=== PATIENT | male | born 1945 | race Caucasian/White ===

== ENCOUNTER 2016-06-04 20:11 | Emergency (ER) | payer MEDICARE, OTHER ==
[~2016-06-04] VITALS: Ht 175.3 cm; Wt 113.6 kg
[2016-06-04 20:15] VITALS: TEMP 99.6
[2016-06-04] MEDS ORDERED: ZOCOR 40MG40 MG PO (20:42)
[2016-06-04] MEDS ORDERED: PRINIVIL20 MG PO (20:42)
[2016-06-04] MEDS ORDERED: NORVASC 5MG5 MG/TAB PO (20:43)
[2016-06-04] MEDS ORDERED: REQUIP XL2 MG PO (20:43)
[2016-06-04] MEDS ORDERED: REQUIP 0.5MG0.5 MG PO (20:44)
[2016-06-04 21:54] LABS: BASO # 0.1 (0.0-0.2); BASO % 0.6 % (0.0-2.0); EOS # 0.3 (0.0-0.7); EOS % 2.9 % (0-4.0); GRAN # 6.6 (1.4-6.5); GRAN % 67.5 % (42.2-75.2); HEMATOCRIT 39.5 % (42.0-52.0); HEMOGLOBIN 13.6 g/dl (13.5-18.0); LYMPH # 1.9 (1.2-3.4); LYMPH % 19.4 % (20.0-51.0); MEAN CELL VOLUME 87 fl (80.0-100.0); MEAN CORPUSCULAR HEMOGLOBIN 30 pg (27.0-31.0); MEAN CORPUSCULAR HGB CONC 34 g/dl (33.0-37.0); MEAN PLATELET VOLUME 8.5 fl (7.4-10.4); MONO # 0.9 (0.1-0.6); MONO % 9.1 % (1.7-9.3); PLATELET COUNT 305 K/mm3 (130-400); RED BLOOD COUNT 4.56 M/mm3 (4.20-5.60); REDCELL DISTRIBUTION WIDTH-CV 13.2 % (11.5-14.5); WHITE BLOOD COUNT 9.7 K/mm3 (4.8-10.8)
[2016-06-04 22:06] LABS: ALBUMIN 3.5 gm/dL (3.5-5.0); BILIRUBIN,TOTAL 0.8 mg/dL (0.0-1.0); C-REACTIVE PROTEIN 8.6 mg/dL (0.0-0.9); CALCIUM 8.6 mg/dL (8.4-10.2); CREATININE, serum 0.82 mg/dL (0.66-1.25); POTASSIUM 3.2 mmol/L (3.4-5.0)
[2016-06-04] MEDS ORDERED: LEVAQUIN 750MG750 M1 PO (22:42)
[2016-06-04 23:19] VITALS: BP 142/79
[2016-06-04 23:48] VITALS: PULSE 84
== END 2016-06-04 23:51 | disposition home or self-care (01) ==
LOC: COL.ER 20:11
PROVIDERS: Emergency Medicine
DX: J18.9 Pneumonia, unspecified organism (principal); I25.10 Atherosclerotic heart disease of native coronary artery without angina pectoris; Z95.1 Presence of aortocoronary bypass graft; I10 Essential (primary) hypertension
CPT/HCPCS: J1956; J7512

== ENCOUNTER 2021-04-18 23:10 | Emergency (ER) | payer MEDICARE, OTHER ==
[~2021-04-18] VITALS: Ht 172.7 cm; Wt 111.4 kg
[~2021-04-18 23:10] MED LIST: LEVAQUIN 750MG750 M1 PO; NORVASC 5MG5 MG/TAB PO; PRINIVIL20 MG PO; REQUIP 0.5MG0.5 MG PO; REQUIP XL2 MG PO; ZOCOR 40MG40 MG PO
[2021-04-19 00:08] LABS: COLLECTION METHOD CLEAN CATCH
[2021-04-19 00:12] LABS: BASO % 0.2 % (0.0-2.0); EOS # 0.1 K/mm3 (0.0-0.7); EOS % 1.4 % (0.0-4.0); GRAN # 3.4 K/mm3 (1.4-6.5); GRAN % 69.4 % (42.2-75.2); HEMATOCRIT 39.8 % (42.0-52.0); HEMOGLOBIN 13.4 g/dl (13.5-18.0); LYMPH # 0.8 K/mm3 (1.2-3.4); LYMPH % 16.7 % (20.0-51.0); MEAN CELL VOLUME 89 fl (80.0-100.0); MEAN CORPUSCULAR HEMOGLOBIN 30 pg (27-31); MEAN CORPUSCULAR HGB CONC 34 g/dl (33.0-37.0); MEAN PLATELET VOLUME 8.8 fl (7.4-10.4); MONO # 0.6 K/mm3 (0.1-0.6); MONO % 11.9 % (1.7-9.3); PLATELET COUNT 223 K/mm3 (130-400); RED BLOOD COUNT 4.47 M/mm3 (4.20-5.60); REDCELL DISTRIBUTION WIDTH-CV 13.3 % (11.5-14.5)
[2021-04-19 00:16] LABS: MUCOUS Present (NOT PRESENT); PH 6 (5-8); SQUAMOUS EPITHELIAL None Seen /hpf (0-10); URINE APPEARANCE Clear (CLEAR/HAZY); URINE BACTERIA None Seen (NONE SEEN); URINE BILIRUBIN Negative (NEGATIVE); URINE BLOOD Negative (NEGATIVE); URINE COLOR Straw (YELLOW); URINE GLUCOSE Negative (NEGATIVE); URINE KETONE Negative (NEGATIVE); URINE LEUKOCYTE ESTERASE Negative (NEGATIVE); URINE NITRATE Negative (NEGATIVE); URINE PROTEIN(semi-quant) Negative (NEGATIVE); URINE UROBILINOGEN Negative (NEGATIVE)
[2021-04-19 00:27] LABS: ALBUMIN 3.1 gm/dL (3.4-4.8); BILIRUBIN,TOTAL 0.3 mg/dL (0.2-1.2); CALCIUM 8.3 mg/dL (8.4-10.2); CREATININE, serum 0.8 mg/dL (0.72-1.25); POTASSIUM 3.5 mmol/L (3.5-4.5); TOTAL PROTEIN 6.1 gm/dL (6.2-8.1)
[2021-04-19 01:42] VITALS: TEMP 98.4
[2021-04-19 03:18] VITALS: BP 132/77; PULSE 73
[2021-04-21] MEDS ORDERED: DECADRON6 MG PO (21:18)
[2021-04-21] MEDS ORDERED: LIPITOR 80MG80 MG PO (21:18)
[2021-04-21] MEDS ORDERED: ASPIRIN 32325 MG/TAB PO (21:20)
[2021-04-21] MEDS ORDERED: PRINIVIL40 MG PO (21:20)
[2021-04-21] MEDS ORDERED: PHARMASSURE ZIN50 MG PO (21:21)
[2021-04-21] MEDS ORDERED: VITAMIND3 5000 PO (21:21)
[2021-04-21] MEDS ORDERED: VITAMINC1000TA PO (21:21)
[2021-04-21] MEDS ORDERED: MAGNESIUM ELEME30 MG PO (21:22)
== END 2021-04-19 03:18 | disposition home or self-care (01) ==
LOC: COL.ER 23:10
PROVIDERS: Family Medicine
DX: U07.1 COVID-19 (principal); R41.0 Disorientation, unspecified; I25.10 Atherosclerotic heart disease of native coronary artery without angina pectoris; I10 Essential (primary) hypertension; Z88.1 Allergy status to other antibiotic agents; Z79.899 Other long term (current) drug therapy
CPT/HCPCS: J7030; M0243; Q0244; Q9967